=== PATIENT | female | born 1975 | race Caucasian/White ===

== ENCOUNTER 2024-03-22 22:24 | Emergency (ER) | payer MEDICAID ==
[~2024-03-22] VITALS: Ht 157.5 cm; Wt 73.0 kg
[2024-03-22 22:33] VITALS: O2SAT 100
[2024-03-23] MEDS ORDERED: METH-653 MT (00:04)
[2024-03-23] MEDS ORDERED: IBUP-2029 MT (00:04)
[2024-03-23] MEDS: IBUPROFEN 600MG TABLET PO NR (01:40)
[2024-03-23] MEDS: IBUPROFEN 600MG TABLET PO ONE (01:41)
[2024-03-23] MEDS: METHOCARBAMOL 500MG TABLET PO NR (01:41)
[2024-03-23] MEDS: METHOCARBAMOL 500MG TABLET PO ONE (01:41)
[2024-03-23 01:44] VITALS: BP 137/71; PULSE 98; RESP 18; TEMP 37.05852; O2SAT 100
== END 2024-03-23 01:48 | disposition home or self-care (01) ==
LOC: ER 22:24
DX: S20.219A Contusion of unspecified front wall of thorax, initial encounter (principal); E11.9 Type 2 diabetes mellitus without complications; V89.2XXA Person injured in unspecified motor-vehicle accident, traffic, initial encounter; Y93.89 Activity, other specified; Y92.410 Unspecified street and highway as the place of occurrence of the external cause; Y99.8 Other external cause status
CPT/HCPCS: 71045; 99283